=== PATIENT | female | born 1960 | race Caucasian/White ===

== ENCOUNTER → 2016-09-25 | Outpatient (CLI) | payer OTHER ==
[~2016-09-25] MED LIST: ALBU1AER9; ATOR10TA88 PO; BUPR-79 PO; CALC500C70 PO; CMD/25 PO; DULO60CA44 PO; FEXO1TAB58 PO; HYDR-5688 PO; HYDR200T5 PO; METO50TA16 PO; PANT40TA PO; TRAM-10 PO; WARF5TAB90 PO
--- NOTE | 2016-09-26 12:37 | MAMMOGRAPHY REPORT ---
THIS REPORT HAS BEEN AMENDED. BILATERAL DIGITAL SCREENING MAMMOGRAM TOMOSYNTHESIS WITH CAD: 09/25/2016 CLINICAL HISTORY: Routine screening. Patient has no complaints. TECHNIQUE: Breast tomosynthesis in addition to standard 2D mammography was performed. Current study was also evaluated with a Computer Aided Detection (CAD) system. COMPARISON: No prior exams were available for comparison. BREAST COMPOSITION: There are scattered areas of fibroglandular density in both breasts. FINDINGS: There is a possible 5 mm mass in the lower inner middle one third of the left breast, for which comparison to prior outside mammograms would be useful to assess stability. If no prior exam s are available for comparison, additional spot compression tomosynthesis views and targeted ultraso und are recommended. No other suspicious mass, architectural distortion or cluster of microcalcifications is seen. IMPRESSION: ACR BI-RADS CATEGORY 0: INCOMPLETE EVALUATION: NEED ADDITIONAL IMAGING EVALUATION The possible 5 mm mass in the lower inner left breast needs comparison to prior outside mammograms t o assess stability. If none are available, additional spot compression tomosynthesis views and targ eted ultrasound are recommended. The patient will be called to schedule an appointment. Approximately 10% of breast cancers are not detected with mammography. A negative mammographic repor t should not delay biopsy if a clinically suggestive mass is present. Lacey Corrigan M.D. ay/:09/25/2016 19:01:16 Table Setter: Angelita Heaton RT(R)(M), [facility] letter sent: Need Priors 0 BI-RADS Code: ACR BI-RADS Category 0: Incomplete Evaluation: Need Additional Imaging Evaluation AMENDMENT: 10/17/2016 Lacey Corrigan M.D. Prior outside mammograms from [place] dated 07/11/2014, 02/08/2005, 11/04/2008 became availab le for review. There have been involutional changes comparing to the prior outside mammograms. How ever, the 5 mm mass in the lower inner quadrant of the left breast was not clearly seen on the prior exams and remains indeterminate. Additional spot compression tomosynthesis views and targeted ultr asound are recommended. Amended BI-RADS: ACR BI-RADS Category 0: Incomplete Evaluation: Need Additional Imaging Evaluation letter sent: Addl Imaging 0
== END | disposition home or self-care (01) ==
LOC: C.MAMM 14:27
PROVIDERS: ATTEND Internal Medicine
DX: Z12.31 Encounter for screening mammogram for malignant neoplasm of breast (principal); N63 Unspecified lump in breast

== ENCOUNTER 2016-12-30 12:04 | Emergency (ER) | payer OTHER ==
[~2016-12-30] VITALS: Ht 162.6 cm; Wt 112.0 kg
[~2016-12-30 12:04] MED LIST changes: +ATOR10TA82 PO; -ATOR10TA88 PO; -CMD/25 PO; -HYDR-5688 PO
[2016-12-30 12:06] VITALS: TEMP 36.6; Ht 162.6 cm; Wt 112.0 kg
[2016-12-30] MEDS ORDERED: CMD/25 PO (12:24)
--- NOTE | 2016-12-30 12:58 | DIAGNOSTIC IMAGING REPORT ---
LEFT WRIST 5 VIEWS CLINICAL HISTORY: Fall several days ago with left wrist pain. FINDINGS: 5 views of left wrist are obtained. No prior studies are available for comparison at the time of dictation. The skeletal structures are osteopenic. There is a chronic avulsion injury of the ulnar styloid. There is a subacute appearing impacted fracture of the distal radial metaphysis with minimal apex dorsal angulation. Soft tissue swelling is seen around the wrist. No additional fracture is identified. Minimal narrowing is seen at the radiocarpal articulation. Osteoarthritic change is present at the first carpometacarpal joint. IMPRESSION: 1. There is a subacute appearing impacted fracture of the distal radial metaphysis with overlying soft tissue edema. Clinical correlation will be required. 2. There is a chronic avulsion injury of the ulnar styloid. 3. Osteopenia and mild arthritic change as above. Electronically signed by: Davon Newell M.D. 12/30/2016 12:56 PM Dictated Date/Time: 12/30/2016 12:54 PM
[2016-12-30] MEDS ORDERED: HYDR-5688 PO (13:22)
[2016-12-30 13:47] VITALS: BP 137/87; PULSE 74; O2SAT 98
--- NOTE | 2016-12-30 17:22 | EMERGENCY ROOM VISIT NOTE ---
ED Visit Note First contact with patient: 12:11 CHIEF COMPLAINT: Left wrist injury History of present illness: This 56-year-old white female patient complains of moderate constant left wrist pain after falling 9 days ago. She fell on an outstretched arm. Patient was initially seen at [facility] and had x-rays obtained. She was told that there was no fracture and that she sprained her wrist. She was given a Velcro wrist splint for support. Her pain has continued and in fact worsened today. She was trying to post on her bed to sit upright. The pain is now worse with any movement of the wrist. No laceration, no numbness or weakness. No other injury. The fall was not associated with dizziness or fainting. There were no palpitations, no chest pain, no difficulty breathing. No headache, no lightheadedness or weakness. Pain is 7/ 10. She has continued swelling. Right-hand dominant. REVIEW OF SYSTEM: HEENT: No dizziness, visual problems, hearing loss, or tinnitus. There is no difficulty swallowing and no oral lesions are present. PULMONARY: No cough, sputum production or hemoptysis. CARDIOVASCULAR: No chest pain, palpitations, or peripheral edema. GASTROINTESTINAL: No diarrhea, constipation, nausea, vomiting, or abdominal pain. GENITOURINARY: No dysuria, frequency, urgency or nocturia. NEUROLOGIC: No weakness, muscle tenderness, epilepsy or history of neurological problems. MUSCULOSKELETAL: No history of joint tenderness/swelling. Positive history of arthritis and arthralgias. SKIN: No rashes or lesions. PSYCHIATRIC: No history of depression or mental illness. ENDOCRINE: No history of diabetes, thyroid disorders, or abnormal hair growth. PMH: Supplemental sheet was reviewed and signed. Previous surgeries: , tubal ligation Medical history: Asthma, history of DVT, GERD, history of FL, heart disease, depression Family history: Noncontributory. Current medications: Reviewed and filed in patient's chart Allergies: Percocet, causing a rash SOCIAL HISTORY: Patient lives at home. No tobacco use, no EtOH use. PHYSICAL EXAM: Vital Signs: Afebrile. Reviewed and filed in patient's chart. General: Well-developed, well-nourished, middle-aged white female, in no acute distress. Obvious discomfort. She is sitting on a bed. MENTAL STATUS: Alert and oriented. Skin: Warm and dry with good turgor. No rashes or lesions. No ecchymosis or erythema. The patient is not diaphoretic. No abrasions. Moderate edema present over the dorsum of the wrist. Musculoskeletal: There is tenderness over the distal radius with moderate swelling. Range of motion is limited supination secondary to pain. She has full pronation. Limited radial and ulnar deviation secondary to pain as well. Full flexion and extension of the elbow. Full range of motion of the digits. No obvious deformity. No pain with palpation over the metacarpal heads or digits. Neurologic: The hand is warm and well perfused and the fingers have normal sensation. Median, radial, and ulnar nerve functions are clearly intact. EMERGENCY DEPARTMENT COURSE: Radiographic images obtained today of the wrist were read by radiology. She has an impacted distal radius fracture, slightly apex dorsal. DIAGNOSIS: Left wrist impacted distal radius fracture, with mild Displacement DISCHARGE INSTRUCTIONS & TREATMENT: The patient was educated regarding today's findings. Conservative care measures were discussed. She was placed in a well- padded Ortho-Glass volar splint under my direct supervision. Neurovascular status was checked before and after splint placement. Patient did request that we incorporate her thumb as well. This was done. Wear the wrist splint at all times until cleared by orthopedics. She will likely require a cast. Ice and elevate the wrist intermittently to reduce pain and swelling. Tylenol 1 g every 6 hours if needed for mild pain. Prescription for a small amount of [place] 5 mg was also provided to be used for more severe pain. Driving precautions were given. Constipation precautions were also given. Gentle elbow motion daily. Cast care handout was provided. Followup with [facility] orthopedics this week for further management. Problem List Medical Problems: (1) Acne Status: Chronic (2) Asthma Status: Chronic (3) CAD (coronary artery disease) Status: Chronic (4) DVT (deep venous thrombosis) Status: Chronic (5) GERD (gastroesophageal reflux disease) Status: Chronic (6) FL (myocardial infarction) Status: Chronic Surgical Problems: (1) History of delivery Status: Resolved (2) History of tubal ligation Status: Resolved Current/Historical Medications Scheduled Atorvastatin (Lipitor), 10 MG PO DAILY Bupropion (Wellbutrin Sr), 150 MG PO BID Calcium/Vitamin D (Os-Wilmer 500 Plus D), Unknown Dose PO BID Duloxetine Hcl (Cymbalta), 60 MG PO DAILY Fexofenadine-Pseudoephedrine (Denisa-D 24 Hour Allergy), 1 TAB PO DAILY Hydroxychloroquine Sulfate (Plaquenil), 400 MG PO HS Metoprolol Tartrate (Lopressor) (Lopressor), 50 MG PO BID Pantoprazole Sodium (Protonix), 40 MG PO DAILY Warfarin Sod (Coumadin), 2.5 MG PO UD Warfarin Sodium (Coumadin), 5 MG PO UD Scheduled PRN Hydrocodone/Acetaminophen 5MG/325MG ([place] 5MG/325MG), 1 TABLET PO Q6 PRN for Pain Tramadol (Ultram), 50 MG PO Q4H PRN for Pain Allergies Coded Allergies: Oxycodone (Verified Allergy, Unknown, rash, 12/30/16) Vital Signs Date Time Temp Pulse Resp B/P (MAP) Pulse Ox O2 Delivery O2 Flow Rate FiO2 12/30/16 13:47 74 18 137/87 98 12/30/16 12:06 36.6 80 16 144/89 97 Room Air Departure Information Impression Primary Impression: Closed fracture of left distal radius Dispostion Home / Self-Care Condition FAIR Prescriptions Hydrocodone/Acetaminophen 5MG/325MG ([place] 5MG/325MG) Tab 1 TABLET PO Q6 Y for Pain, #12 TAB For Initial Treatment Prov: Francisco Lowry,P.A. 12/30/16 Referrals Nader Kuhn M.D. Forms CARE OF CASTS, WORK / SCHOOL INSTRUCTIONS, HOME CARE DOCUMENTATION FORM, TYLENOL USE, IMPORTANT VISIT INFORMATION Patient Instructions My [facility] Additional Instructions Keep the splint on and dry at all times Ice and elevate frequently to reduce pain and swelling Call Dr. Kuhn on Saturday for follow-up this week and to discuss cast placement Tylenol every 6 hours as needed for discomfort Substitute [place] 5 mg every 6 hours as needed for more severe pain-no driving
== END 2016-12-30 13:48 | disposition home or self-care (01) ==
LOC: C.EDB 12:06 → C.EDD 13:48
DX: S52.502A Unspecified fracture of the lower end of left radius, initial encounter for closed fracture (principal); W19.XXXA Unspecified fall, initial encounter; J45.909 Unspecified asthma, uncomplicated; K21.9 Gastro-esophageal reflux disease without esophagitis; F32.9 Major depressive disorder, single episode, unspecified; I25.10 Atherosclerotic heart disease of native coronary artery without angina pectoris; I25.2 Old myocardial infarction; Z86.718 Personal history of other venous thrombosis and embolism; Z79.01 Long term (current) use of anticoagulants; Z98.51 Tubal ligation status

== ENCOUNTER → 2017-01-15 | Outpatient (CLI) | payer OTHER ==
[~2017-01-15] MED LIST changes: -ALBU1AER9; +CMD/25 PO; +HYDR-5688 PO
[2017-01-15 16:24] LABS: INR 1.2 (0.9-1.1); PROTHROMBIN TIME (PATIENT) 12.7 SECONDS (9.0-12.0)
== END | disposition home or self-care (01) ==
LOC: C.LAB1850 14:56
PROVIDERS: ATTEND Orthopaedic Surgery
DX: Z01.818 Encounter for other preprocedural examination (principal); S52.592A Other fractures of lower end of left radius, initial encounter for closed fracture; X58.XXXA Exposure to other specified factors, initial encounter

== ENCOUNTER → 2017-01-15 | Outpatient (CLI) | payer OTHER | END | disposition home or self-care (01) | LOC: C.CPL 15:21 | PROVIDERS: ATTEND Orthopaedic Surgery | DX: Z01.818 Encounter for other preprocedural examination (principal); S52.592A Other fractures of lower end of left radius, initial encounter for closed fracture; X58.XXXA Exposure to other specified factors, initial encounter ==